=== PATIENT | male | born 1970 | race African-American/Black ===

== ENCOUNTER 2020-08-02 13:16 | Inpatient (IN) | payer OTHER ==
[2020-08-02 14:59] VITALS: BMI 32.5
[2020-08-02] MEDS ORDERED: MENTHOL/PHENOL 1 EACH UD MM PRN (16:43)
[2020-08-02] MEDS ORDERED: MAGNESIUM HYDROX 2400MG/30ML ORAL SUSPENSION 30 ML CUP PO PRN (16:43)
[2020-08-02] MEDS ORDERED: MAG HYDROX/AL HYDROX/SIMETH 30 ML UNIT-DOSE CUP PO PRN (16:43)
[2020-08-02] MEDS ORDERED: chlordiazePOXIDE HCL 25 MG CAPSULE PO PRN (16:43)
[2020-08-02] MEDS ORDERED: METHOCARBAMOL 500 MG TABLET PO PRN (16:43)
[2020-08-02] MEDS ORDERED: ACETAMINOPHEN 325 MG TABLET (FP) PO PRN ×2 (16:43)
[2020-08-02] MEDS ORDERED: ONDANSETRON *ODT* 4 MG TABLET SL PRN (16:43)
[2020-08-02] MEDS ORDERED: BISMUTH SUBSALICYLATE 524 MG/30 ML UD PO PRN (16:43)
[2020-08-02] MEDS ORDERED: MAGNESIUM CITRATE 300 ML BOTTLE PO PRN (16:43)
[2020-08-02] MEDS ORDERED: IBUPROFEN 400 MG TABLET (FP) PO PRN (16:43)
[2020-08-02] MEDS ORDERED: hydrOXYzine PAMOATE 25 MG CAPSULE (FP) PO PRN (16:43)
[2020-08-02] MEDS: chlordiazePOXIDE HCL 25 MG CAPSULE PO SCH ×4 (18:27→22:11)
[2020-08-02] MEDS: NICOTINE POLACRILEX 2 MG GUM BUC PRN (18:28)
[2020-08-02] MEDS: VITAMINS A AND D TOPICAL OINTMENT 60 GM TUBE TP SCH (20:24)
[2020-08-02] MEDS: THIAMINE HCL 100 MG TABLET (FP) PO SCH (22:11)
[2020-08-02] MEDS: FAMOTIDINE 20 MG TABLET PO SCH (22:11)
[2020-08-02] MEDS: MELATONIN 5 MG TABLETS PO SCH (22:13)
[2020-08-03] MEDS: chlordiazePOXIDE HCL 25 MG CAPSULE PO SCH ×4 (05:51→22:21)
[2020-08-03] MEDS: NICOTINE POLACRILEX 2 MG GUM BUC PRN ×3 (05:56→22:24)
[2020-08-03] MEDS: FAMOTIDINE 20 MG TABLET PO SCH ×2 (10:34→22:22)
[2020-08-03] MEDS: PRENATAL VITAMINS W/ FOLIC ACID TABLET (FP) PO SCH (10:34)
[2020-08-03] MEDS: NICOTINE 14 MG/24 HOURS TOPICAL PATCH TD SCH (10:35)
[2020-08-03] MEDS: VITAMINS A AND D TOPICAL OINTMENT 60 GM TUBE TP SCH (10:38)
[2020-08-03 11:44] LABS: HEMATOCRIT 44.4 % (35.4-49); HEMOGLOBIN 15.2 GM/dL (11.7-16.9); MCH 32.9 pg (25.7-33.7); MCHC 34.2 g/dl (32.0-35.9); MEAN CELL VOLUME 95.9 fl (80-96); MEAN PLT VOLUME 10.2 fl (7.5-11.1); PLATELET COUNT 164 K/MM3 (134-434); RBC 4.63 M/mm3 (4.00-5.60); RDW 13.7 % (11.9-15.9); WHITE BLOOD COUNT 4.8 K/mm3 (4.0-10.0)
[2020-08-03 11:59] LABS: ALBUMIN 3.5 g/dl (3.4-5.0)
[2020-08-03 12:00] LABS: BLOOD UREA NITROGEN 13.8 mg/dL (7-18); CALCIUM 8.8 mg/dL (8.5-10.1)
[2020-08-03 12:02] LABS: BILIRUBIN,TOTAL 0.6 mg/dL (0.2-1); TOT PROT 7.9 g/dl (6.4-8.2)
[2020-08-03 12:03] LABS: CREATININE 1.1 mg/dL (0.55-1.3)
[2020-08-03 12:19] LABS: SICKLE CELL SCREEN NEGATIVE (NEGATIVE)
[2020-08-03] MEDS: THIAMINE HCL 100 MG TABLET (FP) PO SCH (22:22)
[2020-08-03] MEDS: MELATONIN 5 MG TABLETS PO SCH (22:22)
[2020-08-04] MEDS ORDERED: chlordiazePOXIDE HCL 10 MG CAPSULE PO PRN
[2020-08-04] MEDS: chlordiazePOXIDE HCL 10 MG CAPSULE PO SCH ×4 (06:08→22:34)
[2020-08-04] MEDS: NICOTINE POLACRILEX 2 MG GUM BUC PRN ×3 (08:19→22:36)
[2020-08-04] MEDS: VITAMINS A AND D TOPICAL OINTMENT 60 GM TUBE TP SCH (10:28)
[2020-08-04] MEDS: FAMOTIDINE 20 MG TABLET PO SCH ×2 (10:28→22:34)
[2020-08-04] MEDS: PRENATAL VITAMINS W/ FOLIC ACID TABLET (FP) PO SCH (10:28)
[2020-08-04] MEDS: NICOTINE 14 MG/24 HOURS TOPICAL PATCH TD SCH (10:28)
[2020-08-04] MEDS: MELATONIN 5 MG TABLETS PO SCH (22:34)
[2020-08-04] MEDS: THIAMINE HCL 100 MG TABLET (FP) PO SCH (22:34)
[2020-08-05] MEDS: chlordiazePOXIDE HCL 10 MG CAPSULE PO SCH ×2 (05:45→18:20)
[2020-08-05] MEDS: NICOTINE POLACRILEX 2 MG GUM BUC PRN ×3 (05:46→21:30)
[2020-08-05] MEDS: NICOTINE 14 MG/24 HOURS TOPICAL PATCH TD SCH (10:42)
[2020-08-05] MEDS: VITAMINS A AND D TOPICAL OINTMENT 60 GM TUBE TP SCH (10:43)
[2020-08-05] MEDS: FAMOTIDINE 20 MG TABLET PO SCH ×2 (10:43→22:27)
[2020-08-05] MEDS: PRENATAL VITAMINS W/ FOLIC ACID TABLET (FP) PO SCH (10:43)
[2020-08-05] MEDS: MELATONIN 5 MG TABLETS PO SCH (22:27)
[2020-08-05] MEDS: THIAMINE HCL 100 MG TABLET (FP) PO SCH (22:27)
[2020-08-06] MEDS ORDERED: chlordiazePOXIDE HCL 10 MG CAPSULE PO ONE (05:00)
[2020-08-06] MEDS: NICOTINE POLACRILEX 2 MG GUM BUC PRN (09:01)
[2020-08-06 09:42] VITALS: BP 123/72; PULSE 76; TEMP 97.3
[2020-08-06] MEDS: VITAMINS A AND D TOPICAL OINTMENT 60 GM TUBE TP SCH (10:06)
[2020-08-06] MEDS: NICOTINE 14 MG/24 HOURS TOPICAL PATCH TD SCH (10:08)
[2020-08-06] MEDS: FAMOTIDINE 20 MG TABLET PO SCH (10:08)
[2020-08-06] MEDS: PRENATAL VITAMINS W/ FOLIC ACID TABLET (FP) PO SCH (10:08)
[2020-08-07 06:05] LABS: SARS-CoV-2 NAA Not Detected (Not Detected)
== END 2020-08-06 10:06 | disposition other institution (70) | DRG 775 ==
LOC: YASAS 13:16 → Y6N 16:57
PROVIDERS: ADMIT Allergy & Immunology; ATTEND Allergy & Immunology
PROC: HZ2ZZZZ Detoxification Services for Substance Abuse Treatment (ICD-10-PCS; principal; 2020-08-02)
DX: F10.230 Alcohol dependence with withdrawal, uncomplicated (principal); F12.20 Cannabis dependence, uncomplicated; F19.20 Other psychoactive substance dependence, uncomplicated; F17.210 Nicotine dependence, cigarettes, uncomplicated; F31.9 Bipolar disorder, unspecified; F19.24 Other psychoactive substance dependence with psychoactive substance-induced mood disorder; J84.9 Interstitial pulmonary disease, unspecified; K21.9 Gastro-esophageal reflux disease without esophagitis; M54.5 Low back pain; G89.29 Other chronic pain; Z62.810 Personal history of physical and sexual abuse in childhood; Z87.81 Personal history of (healed) traumatic fracture; Z56.0 Unemployment, unspecified; Z59.0 Homelessness; Z91.013 Allergy to seafood
CPT/HCPCS: 36415; 71046-TC-FY; 80053; 85027; 85660; 86780; 93005; 93010; C9803; U0003; U0005

== ENCOUNTER 2020-10-17 12:54 | Inpatient (IN) | payer OTHER ==
[2020-10-17 14:22] VITALS: BMI 34.4
[2020-10-17] MEDS ORDERED: ALBUTEROL SO4 HFA INHALER IH PRN (16:29)
[2020-10-17] MEDS ORDERED: LORazepam 1 MG TABLET PO PRN (16:30)
[2020-10-17] MEDS ORDERED: METHOCARBAMOL 500 MG TABLET PO PRN (16:30)
[2020-10-17] MEDS ORDERED: IBUPROFEN 400 MG TABLET (FP) PO PRN (16:30)
[2020-10-17] MEDS ORDERED: ACETAMINOPHEN 325 MG TABLET (FP) PO PRN ×2 (16:30)
[2020-10-17] MEDS ORDERED: MAGNESIUM CITRATE 300 ML BOTTLE PO PRN (16:30)
[2020-10-17] MEDS ORDERED: BISMUTH SUBSALICYLATE 524 MG/30 ML PO PRN (16:30)
[2020-10-17] MEDS ORDERED: MAG HYDROX/AL HYDROX/SIMETH 30 ML UNIT-DOSE CUP PO PRN (16:30)
[2020-10-17] MEDS ORDERED: MENTHOL/PHENOL 1 EACH UD MM PRN (16:30)
[2020-10-17] MEDS ORDERED: ONDANSETRON *ODT* 4 MG TABLET SL PRN (16:30)
[2020-10-17] MEDS ORDERED: MAGNESIUM HYDROX 2400MG/30ML ORAL SUSPENSION 30 ML CUP PO PRN (16:30)
[2020-10-17] MEDS: LORazepam 2 MG TABLET PO SCH ×2 (18:49→22:21)
[2020-10-17] MEDS: hydrOXYzine PAMOATE 25 MG CAPSULE (FP) PO SCH ×2 (18:49→22:21)
[2020-10-17] MEDS: NICOTINE POLACRILEX 2 MG GUM BUC PRN ×2 (18:54→22:23)
[2020-10-17] MEDS: THIAMINE HCL 100 MG TABLET (FP) PO SCH (22:21)
[2020-10-17] MEDS: MELATONIN 5 MG TABLETS PO SCH (22:21)
[2020-10-18] MEDS: hydrOXYzine PAMOATE 25 MG CAPSULE (FP) PO SCH ×5 (06:10→22:54)
[2020-10-18] MEDS: LORazepam 2 MG TABLET PO SCH ×4 (06:11→22:53)
[2020-10-18 10:17] LABS: HEMATOCRIT 46.3 % (35.4-49); HEMOGLOBIN 15.2 GM/dL (11.7-16.9); MCH 31.6 pg (25.7-33.7); MCHC 32.9 g/dl (32.0-35.9); MEAN CELL VOLUME 96.3 fl (80-96); PLATELET COUNT 227 10^3/uL (134-434); RDW 13.9 % (11.9-15.9)
[2020-10-18 10:25] LABS: CALCIUM 8.5 mg/dL (8.5-10.1)
[2020-10-18] MEDS: PANTOPRAZOLE 20 MG TABLET PO SCH (10:25)
[2020-10-18] MEDS: PRENATAL VITAMINS W/ FOLIC ACID TABLET (FP) PO SCH (10:25)
[2020-10-18 10:27] LABS: BLOOD UREA NITROGEN 8.3 mg/dL (7-18)
[2020-10-18 10:29] LABS: BILIRUBIN,TOTAL 0.4 mg/dL (0.2-1); TOT PROT 7.4 g/dl (6.4-8.2)
[2020-10-18] MEDS: NICOTINE POLACRILEX 2 MG GUM BUC PRN ×3 (14:59→20:32)
[2020-10-18] MEDS: THIAMINE HCL 100 MG TABLET (FP) PO SCH (22:53)
[2020-10-18] MEDS: MELATONIN 5 MG TABLETS PO SCH (22:53)
[2020-10-19] MEDS: hydrOXYzine PAMOATE 25 MG CAPSULE (FP) PO SCH ×5 (05:58→22:22)
[2020-10-19] MEDS: LORazepam 1 MG TABLET PO SCH ×4 (05:58→22:22)
[2020-10-19] MEDS: NICOTINE POLACRILEX 2 MG GUM BUC PRN ×5 (05:59→22:24)
[2020-10-19] MEDS: PANTOPRAZOLE 20 MG TABLET PO SCH (10:21)
[2020-10-19] MEDS: PRENATAL VITAMINS W/ FOLIC ACID TABLET (FP) PO SCH (10:21)
[2020-10-19] MEDS: MELATONIN 5 MG TABLETS PO SCH (22:22)
[2020-10-19] MEDS: THIAMINE HCL 100 MG TABLET (FP) PO SCH (22:22)
[2020-10-20] MEDS ORDERED: LORazepam 0.5 MG TABLET PO PRN
[2020-10-20] MEDS: LORazepam 0.5 MG TABLET PO SCH ×4 (05:48→22:12)
[2020-10-20] MEDS: hydrOXYzine PAMOATE 25 MG CAPSULE (FP) PO SCH ×2 (05:48→10:08)
[2020-10-20] MEDS: NICOTINE POLACRILEX 2 MG GUM BUC PRN ×4 (05:49→19:27)
[2020-10-20] MEDS: PRENATAL VITAMINS W/ FOLIC ACID TABLET (FP) PO SCH (10:08)
[2020-10-20] MEDS: PANTOPRAZOLE 20 MG TABLET PO SCH (10:08)
[2020-10-20] MEDS ORDERED: hydrOXYzine PAMOATE 25 MG CAPSULE (FP) PO PRN (11:51)
[2020-10-20] MEDS ORDERED: COVID-19 VAC,AD26(JANSSEN)/PF 0.5 ML IM ONE (13:00)
[2020-10-20] MEDS ORDERED: cloNIDine HCL 0.1 MG TABLET PO ONE (19:52)
[2020-10-20] MEDS: THIAMINE HCL 100 MG TABLET (FP) PO SCH (22:11)
[2020-10-20] MEDS: MELATONIN 5 MG TABLETS PO SCH (22:43)
[2020-10-21] MEDS ORDERED: LORazepam 0.5 MG TABLET PO ONE (05:00)
[2020-10-21] MEDS: NICOTINE POLACRILEX 2 MG GUM BUC PRN (05:56)
[2020-10-21] MEDS: PANTOPRAZOLE 20 MG TABLET PO SCH (09:57)
[2020-10-21] MEDS: PRENATAL VITAMINS W/ FOLIC ACID TABLET (FP) PO SCH (09:57)
[2020-10-21 10:13] VITALS: BP 126/79; PULSE 68; TEMP 97.6
== END 2020-10-21 10:36 | disposition home or self-care (01) | DRG 775 ==
LOC: YASAS 12:54 → Y3N 17:12
PROVIDERS: ADMIT Allergy & Immunology; ATTEND Allergy & Immunology
PROC: HZ2ZZZZ Detoxification Services for Substance Abuse Treatment (ICD-10-PCS; principal; 2020-10-17)
DX: F10.230 Alcohol dependence with withdrawal, uncomplicated (principal); F12.20 Cannabis dependence, uncomplicated; F19.24 Other psychoactive substance dependence with psychoactive substance-induced mood disorder; K21.9 Gastro-esophageal reflux disease without esophagitis; M54.5 Low back pain; G89.29 Other chronic pain; Z62.810 Personal history of physical and sexual abuse in childhood; I25.2 Old myocardial infarction; Z72.0 Tobacco use; Z87.09 Personal history of other diseases of the respiratory system; Z56.0 Unemployment, unspecified; Z59.0 Homelessness; Z91.013 Allergy to seafood
CPT/HCPCS: 0031A; 36415; 71046-TC-FY; 80053; 85027; 86780; 91303; C9803; J0735; U0003; U0005